=== PATIENT | male | born 1995 | race African-American/Black ===

== ENCOUNTER 2017-12-11 18:08 | Emergency (ER) | payer OTHER ==
[~2017-12-11] VITALS: Ht 182.9 cm; Wt 90.7 kg
[~2017-12-11 18:08] MED LIST: HYDACE5 PO; IBUP600 PO; OMEP40CA12 PO; RXOXYACE PO; RXTRAM50 PO; TRAM50 PO
== END 2017-12-11 19:36 | disposition home or self-care (01) ==
LOC: ER 18:08
DX: M25.512 Pain in left shoulder (principal); J45.909 Unspecified asthma, uncomplicated; F17.200 Nicotine dependence, unspecified, uncomplicated; V89.2XXA Person injured in unspecified motor-vehicle accident, traffic, initial encounter
CPT/HCPCS: 73030; 99283

== ENCOUNTER 2019-04-19 08:28 | Emergency (ER) | payer OTHER ==
[~2019-04-19] VITALS: Ht 180.3 cm; Wt 131.5 kg
[2019-04-19 09:06] LABS: BASOPHILS ABSOLUTE AUTO 0.09 K/mm3 (0.00-0.23); BASOPHILS PERCENT AUTO 1 % (0-2); EOSINOPHILS PERCENT AUTO 1 % (0-6); Hematocrit 46.5 % (37.0-53.0); IMMATURE GRAN ABSOLUTE AUTO 0.08 K/mm3 (0.00-0.10); IMMATURE GRAN PERCENT AUTO 1 % (0-1); LYMPHOCYTES ABSOLUTE AUTO 2.74 K/mm3 (0.84-5.20); LYMPHOCYTES PERCENT AUTO 23 % (21-46); MONOCYTES ABSOLUTE AUTO 0.84 K/mm3 (0.16-1.47); MONOCYTES PERCENT AUTO 7 % (4-13); Mean Corpuscular HGB 33.1 pg (26.0-34.0); Mean Corpuscular HGB Conc 34.4 g/dL (31.5-36.5); Mean Corpuscular Volume 96 fL (80-100); Mean Platelet Volume 8.6 fL (9.1-12.4); NEUTROPHILS ABSOLUTE AUTO 8.28 K/mm3 (1.96-9.15); NEUTROPHILS PERCENT AUTO 68 % (41-73); Platelet Count 261 K/mm3 (150-400); RDW Coefficient Variation 12.2 % (11.7-14.2); RDW Standard Deviation 43.4 fL (35.1-46.3); Red Blood Cell Count 4.83 M/mm3 (4.30-5.90); White Blood Cell Count 12.13 K/mm3 (4.00-11.30)
[2019-04-19 09:25] LABS: Alanine Aminotransfer (ALT/SGP 89 U/L (12-78); Albumin, Blood 3.9 g/dL (3.4-5.0); Albumin/Globulin Ratio 1.1 (0.8-1.8); Alk Phos 105 U/L (50-136); Anion Gap 7 mmol/L (6-16); Aspartate Aminotrans (AST/SGOT 74 U/L (12-37); Bilirubin, Total 0.4 mg/dL (0.1-1.0); Blood Urea Nitrogen 9 mg/dL (8-24); CO2, Blood 21 mmol/L (21-32); Chloride, Blood 111 mmol/L (98-108); Creatinine, Blood 0.82 mg/dL (0.60-1.20); Globulin, Blood 3.6 g/dL (2.2-4.0); Glomerular Filtration Rate >60 (60-); Glucose, Blood 97 mg/dL (70-99); Potassium, Blood 4.1 mmol/L (3.5-5.5); Sodium, Blood 139 mmol/L (136-145); Total Protein, Blood 7.5 g/dL (6.4-8.2)
== END 2019-04-19 09:57 | disposition home or self-care (01) ==
LOC: ER 08:28
PROVIDERS: Emergency Medicine
DX: K62.5 Hemorrhage of anus and rectum (principal); J45.909 Unspecified asthma, uncomplicated; F17.210 Nicotine dependence, cigarettes, uncomplicated
CPT/HCPCS: 36415; 80053; 85025; 86850; 86900; 86901; 99283